=== PATIENT | female | born 1955 | race Asian ===

== ENCOUNTER 2017-05-12 05:52 | Day surgery (SDC) | payer OTHER ==
[~2017-05-12] VITALS: Ht 147.3 cm; Wt 58.2 kg
[2017-05-12] MEDS ORDERED: LIDOCAINE HCL 2% 30 ML JELLY TP ONE (05:53)
[2017-05-12] MEDS ORDERED: ALBUTEROL SULFATE 2.5 MG/0.5 ML NEB SOLUTION NEB ONE (05:53)
[2017-05-12] MEDS ORDERED: BENZOCAINE 20% 50 MCG/SPRAY 57 GM TP ONE (05:53)
[2017-05-12] MEDS ORDERED: LIDOCAINE HCL 4% 50 ML SOLUTION TP ONE (05:53)
[2017-05-12] MEDS ORDERED: SODIUM CHLORIDE 0.9% 1,000 ML IV ONE ×2 (06:05→07:00)
[2017-05-12] MEDS ORDERED: BACL10TA PO (06:34)
[2017-05-12] MEDS ORDERED: ALEN70TA48 PO (06:34)
[2017-05-12] MEDS ORDERED: METH2.5T6 PO (06:34)
[2017-05-12] MEDS ORDERED: LISI-660 PO (06:34)
[2017-05-12] MEDS ORDERED: METF500T4 PO (06:34)
[2017-05-12] MEDS ORDERED: PANT40TA25 PO (06:34)
[2017-05-12] MEDS ORDERED: PRED5 PO (06:34)
[2017-05-12 07:08] LABS: GLUCOMETER DEV NAME(LOC) SDS 5; GLUCOSE,POINT OF CARE 93 MG/DL (70-110)
[2017-05-12] MEDS ORDERED: MIDAZOLAM HCL 2 MG/2 ML VIAL ONE (07:34)
[2017-05-12] MEDS ORDERED: FentaNYL CITRATE-PF 100 MCG/2 ML VIAL ONE (07:34)
[2017-05-12] MEDS ORDERED: MethylPREDNISolone SOD SUCC 125 MG/2 ML VIAL IVP ONE (08:45)
[2017-05-12] MEDS ORDERED: MethylPREDNISolone SOD SUCC 125 MG/2 ML VIAL ONE (08:52)
[2017-05-12] MEDS ORDERED: OXYGEN THERAPY IH SCH (20:00)
== END 2017-05-12 11:25 | disposition home or self-care (01) ==
LOC: SURGERY 05:52
PROVIDERS: ATTEND Internal Medicine Critical Care Medicine
DX: J38.4 Edema of larynx (principal); B37.0 Candidal stomatitis; E11.9 Type 2 diabetes mellitus without complications; I10 Essential (primary) hypertension; Z98.890 Other specified postprocedural states
CPT/HCPCS: 31623; 31624; 71010; 82962; 87015 ×2; 87070; 87101; 87147; 87205; 87220; 88108; 88312; J2250; J2930; J3010; J7030